=== PATIENT | male | born 1970 | race African-American/Black ===

== ENCOUNTER 2022-03-24 11:19 | Inpatient (IN) | payer MEDICARE ==
[2022-03-24] MEDS ORDERED: Iopamidol-370 76% 500 ML 1 ML ONE (11:36)
[2022-03-24] MEDS ORDERED: Aspirin 81 mg Enteric Coated Tablet ONE (11:46)
[2022-03-24] MEDS ORDERED: Aspirin Chewable 81 MG TAB ONE (11:46)
[2022-03-24] MEDS ORDERED: Nitroglycerin 2% Ointment 1 INCH/1 GM Packet ONE (11:46)
[2022-03-24 11:59] LABS: #Eosinphils 0.1 thou/uL (0.0-0.7); #Lymphocytes 1.1 thou/uL (1.20-3.40); #Monocytes 1.9 thou/uL (0.11-0.59); #Neutrophils 10.2 thou/uL (1.40-6.50); %Basophils 0.1 % (0.0-1.0); %Eosinophils 0.4 % (0.0-10.0); %Lymphocytes 8.2 % (21.0-51.0); %Monocytes 14.3 % (0.0-10.0); Hemoglobin 15.3 g/dL (14.0-18.0); Mean Corpuscular HGB CONC 33.4 g/dL (32.0-36.0); Mean Corpuscular Hemoglobin 35.2 pg (27.0-31.0); Mean Platelet Volume 8.9 fL (7.4-10.4); Platelet Count 248 thou/uL (130-400); RBC Distribution Width 15.1 % (11.5-14.5); Red Blood Cell (RBC) Count 4.34 mill/uL (4.70-6.10); White Blood Cell (WBC) Count 13.3 thou/uL (4.8-10.8)
[2022-03-24 12:13] LABS: ALT (SGPT) 51 U/L (8-55); AST (SGOT) 76 U/L (5-34); Albumin 2.8 g/dL (3.5-5.0); Alkaline Phosphatase 1269 U/L (40-110); Anion Gap 14 mmol/L (10-20); BUN (Urea Nitrogen) 59 mg/dL (8.4-25.7); Bilirubin, Total 3.5 mg/dL (0.2-1.2); CK (CPK) 401 U/L (30-200); Calc. Creatinine Clearance 0 mL/min (70-130); Calcium 8.5 mg/dL (7.8-10.44); Carbon Dioxide 24 mmol/L (22-29); Chloride 98 mmol/L (98-107); Estimated GFR 58; Globulin 5.2 g/dL (2.4-3.5); Glucose 93 mg/dL (70-105); Lipase 9 U/L (8-78); Potassium 3.5 mmol/L (3.5-5.1); Sodium 132 mmol/L (136-145)
[2022-03-24] MEDS ORDERED: Albuterol Sulfate 2.5 mg/0.5 ml Neb ONE (12:57)
[2022-03-24] MEDS ORDERED: Dexamethasone 10 MG/ML VIAL ONE (12:57)
[2022-03-24] MEDS ORDERED: Senokot S 8.6-50 MG TAB PO PRN (13:21)
[2022-03-24] MEDS ORDERED: Acetaminophen 325 MG TAB PO PRN (13:21)
[2022-03-24] MEDS ORDERED: Bisacodyl 5 MG TAB PO PRN (13:21)
[2022-03-24] MEDS ORDERED: Ondansetron PF 4 MG/2 ML Vial IVP PRN (13:21)
[2022-03-24] MEDS ORDERED: Ondansetron ODT 4 MG TAB PO PRN (13:21)
[2022-03-24] MEDS ORDERED: Azithromycin 500 MG VIAL ONE (13:25)
[2022-03-24] MEDS ORDERED: CEFAZOLIN 2 GM VIAL ONE (13:26)
[2022-03-24 15:15] LABS: Bilirubin 1+ (Negative); Blood, Urine Negative (Negative); Clarity Clear (Clear); Glucose, Urine (Dipstick) Normal (Negative); Ketone, Urine Negative (Negative); Leukocyte 250 Leu/uL (Negative); Nitrite Negative (Negative); Protein, Urine (Dipstick) 30 mg/dL (Neg-Trace); RBC/HPF 0-3 HPF (0-3); Specific Gravity, Urine 1.023 (1.002-1.036); Urobilinogen 6 mg/dL (Less than 2); WBC/HPF Greater than 50 HPF (0-3)
[2022-03-24 15:18] LABS: Bacteria/HPF 1+ HPF (None Seen)
[2022-03-24] MEDS ORDERED: Piperacillin/Tazobactam 3.375 GM in Sodium Chloride 0.9% 100 ML IVPB SCH (15:45)
[2022-03-24] MEDS ORDERED: Loperamide HCl 2 MG CAP PO PRN (15:49)
[2022-03-24] MEDS: Heparin 5,000 UNITS/ML VIAL SC SCH ×2 (16:21→20:50)
[2022-03-24] MEDS: Sodium Chloride 0.9% 1,000 ML IV SCH ×3 (16:22→23:55)
[2022-03-24] MEDS: Piperacillin/Tazobactam 3.375 GM in Sodium Chloride 0.9% 100 ML IVPB SCH ×2 (20:40→20:50)
[2022-03-25] MEDS ORDERED: Dextrose 5% in Water 1,000 ML IV PRN (00:06)
[2022-03-25] MEDS ORDERED: Dextrose 50% Abboject 50 ML SYRINGE SLOW IVP PRN (00:06)
[2022-03-25] MEDS: Piperacillin/Tazobactam 3.375 GM in Sodium Chloride 0.9% 100 ML IVPB SCH ×3 (00:29→16:54)
[2022-03-25] MEDS: HumaLOG 300 UNITS/3 ML VIAL SC PRN ×3 (00:29→21:36)
[2022-03-25 07:47] LABS: #Lymphocytes 0.7 thou/uL (1.20-3.40); #Monocytes 1.1 thou/uL (0.11-0.59); #Neutrophils 7.9 thou/uL (1.40-6.50); %Basophils 0.1 % (0.0-1.0); %Eosinophils 0.2 % (0.0-10.0); %Lymphocytes 6.8 % (21.0-51.0); %Monocytes 11.1 % (0.0-10.0); %Neutrophils 81.9 % (42.0-75.0); Hemoglobin 12.8 g/dL (14.0-18.0); Mean Corpuscular Hemoglobin 34.8 pg (27.0-31.0); Mean Platelet Volume 9.3 fL (7.4-10.4); Platelet Count 226 thou/uL (130-400); RBC Distribution Width 15.1 % (11.5-14.5); Red Blood Cell (RBC) Count 3.69 mill/uL (4.70-6.10); White Blood Cell (WBC) Count 9.6 thou/uL (4.8-10.8)
[2022-03-25 08:06] LABS: ALT (SGPT) 53 U/L (8-55); AST (SGOT) 64 U/L (5-34); Albumin 2.3 g/dL (3.5-5.0); Alkaline Phosphatase 1103 U/L (40-110); Anion Gap 13 mmol/L (10-20); BUN (Urea Nitrogen) 47 mg/dL (8.4-25.7); Bilirubin, Total 4.2 mg/dL (0.2-1.2); Calc. Creatinine Clearance 0 mL/min (70-130); Calcium 8.3 mg/dL (7.8-10.44); Carbon Dioxide 21 mmol/L (22-29); Chloride 105 mmol/L (98-107); Estimated GFR 68; Globulin 4.7 g/dL (2.4-3.5); Glucose 414 mg/dL (70-105); Potassium 4.2 mmol/L (3.5-5.1); Sodium 135 mmol/L (136-145)
[2022-03-25] MEDS: Heparin 5,000 UNITS/ML VIAL SC SCH ×3 (08:12→21:39)
[2022-03-25] MEDS: Azithromycin 500 MG in Sodium Chloride 0.9% 250 ML 250 ML IVPB SCH (08:12)
[2022-03-25] MEDS: Insulin Glargine 30 UNITS/0.3 ML VIAL SC SCH ×2 (08:13→21:36)
[2022-03-25 08:26] LABS: HBCM Index 0.13 S/CO (0-0.79); HBSAg Index 0.25 S/CO (0-0.99); Hep A IgM AB Non-Reactive (NonReactive); Hep A IgM S/CO 0.14 S/CO (0-0.79); Hep B Surf Ag Non-Reactive S/CO (NonReactive); Hep C IgG Ab Non-Reactive (NonReactive); Hepatitis B Core IgM Abs Non-Reactive (NonReactive)
[2022-03-25] MEDS ORDERED: FLU VACC QS2022-23(6MOS UP)/PF 60 MCG/0.5 ML SYRINGE IM ONE (09:00)
[2022-03-25] MEDS: Sodium Chloride 0.9% 1,000 ML IV SCH (09:51)
[2022-03-26] MEDS: Piperacillin/Tazobactam 3.375 GM in Sodium Chloride 0.9% 100 ML IVPB SCH ×3 (00:04→21:27)
[2022-03-26] MEDS: Insulin Glargine 30 UNITS/0.3 ML VIAL SC SCH ×2 (09:01→21:29)
[2022-03-26] MEDS: Heparin 5,000 UNITS/ML VIAL SC SCH ×3 (09:01→21:28)
[2022-03-26] MEDS: Azithromycin 500 MG in Sodium Chloride 0.9% 250 ML 250 ML IVPB SCH (09:02)
[2022-03-26 10:11] LABS: Albumin 2.3 g/dL (3.5-5.0)
[2022-03-26 10:12] LABS: Chloride 108 mmol/L (98-107); Potassium 3.8 mmol/L (3.5-5.1); Sodium 138 mmol/L (136-145)
[2022-03-26 10:13] LABS: Calcium 8.5 mg/dL (7.8-10.44)
[2022-03-26 10:14] LABS: Globulin 4.8 g/dL (2.4-3.5); Glucose 153 mg/dL (70-105); Protein, Total 7.1 g/dL (6.0-8.3)
[2022-03-26 10:15] LABS: Anion Gap 11 mmol/L (10-20); Bilirubin, Total 3.5 mg/dL (0.2-1.2); Carbon Dioxide 23 mmol/L (22-29)
[2022-03-26 10:16] LABS: Alkaline Phosphatase 1136 U/L (40-110)
[2022-03-26 10:17] LABS: Calc. Creatinine Clearance 0 mL/min (70-130); Estimated GFR 97
[2022-03-26 10:18] LABS: BUN (Urea Nitrogen) 21 mg/dL (8.4-25.7)
[2022-03-26 10:19] LABS: AST (SGOT) 117 U/L (5-34)
[2022-03-26 10:20] LABS: ALT (SGPT) 83 U/L (8-55)
[2022-03-26] MEDS: HumaLOG 300 UNITS/3 ML VIAL SC PRN ×2 (13:10→21:28)
[2022-03-26] MEDS: guaiFENesin ER 600 MG TAB PO SCH (21:27)
[2022-03-27] MEDS: Piperacillin/Tazobactam 3.375 GM in Sodium Chloride 0.9% 100 ML IVPB SCH ×2 (03:36→13:30)
[2022-03-27 08:45] LABS: Albumin 2.5 g/dL (3.5-5.0)
[2022-03-27 08:46] LABS: Chloride 108 mmol/L (98-107); Potassium 3.7 mmol/L (3.5-5.1); Sodium 140 mmol/L (136-145)
[2022-03-27 08:47] LABS: Calcium 8.8 mg/dL (7.8-10.44)
[2022-03-27 08:48] LABS: Glucose 70 mg/dL (70-105); Protein, Total 7.5 g/dL (6.0-8.3)
[2022-03-27 08:49] LABS: Anion Gap 11 mmol/L (10-20); Carbon Dioxide 25 mmol/L (22-29)
[2022-03-27 08:50] LABS: Alkaline Phosphatase 1349 U/L (40-110); Bilirubin, Total 4.3 mg/dL (0.2-1.2)
[2022-03-27 08:51] LABS: Calc. Creatinine Clearance 0 mL/min (70-130); Estimated GFR 106
[2022-03-27 08:52] LABS: BUN (Urea Nitrogen) 10 mg/dL (8.4-25.7)
[2022-03-27 08:53] LABS: AST (SGOT) 144 U/L (5-34)
[2022-03-27 08:54] LABS: ALT (SGPT) 119 U/L (8-55)
[2022-03-27] MEDS: Insulin Glargine 30 UNITS/0.3 ML VIAL SC SCH ×2 (09:10→21:41)
[2022-03-27] MEDS: guaiFENesin ER 600 MG TAB PO SCH ×2 (09:10→21:23)
[2022-03-27] MEDS: Azithromycin 500 MG in Sodium Chloride 0.9% 250 ML 250 ML IVPB SCH ×2 (09:10→13:29)
[2022-03-27] MEDS: Heparin 5,000 UNITS/ML VIAL SC SCH ×3 (09:10→21:23)
[2022-03-27 11:27] VITALS: BMI 20.2
[2022-03-28] MEDS: Levothyroxine Sodium 50 MCG TAB PO SCH (05:28)
[2022-03-28 07:00] LABS: ALT (SGPT) 106 U/L (8-55); AST (SGOT) 107 U/L (5-34); Albumin 2.3 g/dL (3.5-5.0); Alkaline Phosphatase 1258 U/L (40-110); Anion Gap 12 mmol/L (10-20); BUN (Urea Nitrogen) 7 mg/dL (8.4-25.7); Bilirubin, Total 4.2 mg/dL (0.2-1.2); Calc. Creatinine Clearance 110 mL/min (70-130); Calcium 8.6 mg/dL (7.8-10.44); Carbon Dioxide 22 mmol/L (22-29); Chloride 107 mmol/L (98-107); Estimated GFR 110; Globulin 5.3 g/dL (2.4-3.5); Glucose 51 mg/dL (70-105); Potassium 4.1 mmol/L (3.5-5.1); Protein, Total 7.6 g/dL (6.0-8.3); Sodium 137 mmol/L (136-145)
[2022-03-28] MEDS: Tamsulosin HCl 0.4 MG CAP PO SCH (08:53)
[2022-03-28] MEDS: Insulin Glargine 30 UNITS/0.3 ML VIAL SC SCH ×2 (08:53→20:20)
[2022-03-28] MEDS: Heparin 5,000 UNITS/ML VIAL SC SCH ×3 (08:53→20:20)
[2022-03-28] MEDS: guaiFENesin ER 600 MG TAB PO SCH ×2 (08:54→20:19)
[2022-03-28] MEDS ORDERED: Acetylcysteine 20% 200 MG/ML 30 ML VIAL INH SCH (10:00)
[2022-03-28] MEDS: HumaLOG 300 UNITS/3 ML VIAL SC PRN (17:00)
[2022-03-29] MEDS: Levothyroxine Sodium 50 MCG TAB PO SCH (05:04)
[2022-03-29 07:24] LABS: ALT (SGPT) 72 U/L (8-55); AST (SGOT) 42 U/L (5-34); Albumin 2.3 g/dL (3.5-5.0); Alkaline Phosphatase 1067 U/L (40-110); Anion Gap 10 mmol/L (10-20); BUN (Urea Nitrogen) 7 mg/dL (8.4-25.7); Bilirubin, Total 2.7 mg/dL (0.2-1.2); Calc. Creatinine Clearance 116 mL/min (70-130); Calcium 8.4 mg/dL (7.8-10.44); Carbon Dioxide 22 mmol/L (22-29); Chloride 106 mmol/L (98-107); Estimated GFR 112; Globulin 4.4 g/dL (2.4-3.5); Glucose 109 mg/dL (70-105); Potassium 3.8 mmol/L (3.5-5.1); Protein, Total 6.7 g/dL (6.0-8.3); Sodium 134 mmol/L (136-145)
[2022-03-29] MEDS: Heparin 5,000 UNITS/ML VIAL SC SCH (08:39)
[2022-03-29] MEDS: Tamsulosin HCl 0.4 MG CAP PO SCH (08:39)
[2022-03-29] MEDS: guaiFENesin ER 600 MG TAB PO SCH (08:39)
[2022-03-29] MEDS: Insulin Glargine 30 UNITS/0.3 ML VIAL SC SCH (08:40)
[2022-03-29 12:39] VITALS: BP 131/89; TEMP 98.7
== END 2022-03-29 13:18 | disposition home or self-care (01) | DRG 871 ==
LOC: SUATTDRO 11:19 → ERS 11:19 → T4-B 13:24
PROVIDERS: ADMIT Internal Medicine; ATTEND Family Medicine
DX: A41.9 Sepsis, unspecified organism (principal); J18.0 Bronchopneumonia, unspecified organism; J96.01 Acute respiratory failure with hypoxia; N17.9 Acute kidney failure, unspecified; K86.3 Pseudocyst of pancreas; J44.0 Chronic obstructive pulmonary disease with (acute) lower respiratory infection; R65.20 Severe sepsis without septic shock; Z20.822 Contact with and (suspected) exposure to COVID-19; F17.210 Nicotine dependence, cigarettes, uncomplicated; F10.10 Alcohol abuse, uncomplicated; K83.8 Other specified diseases of biliary tract; E11.649 Type 2 diabetes mellitus with hypoglycemia without coma; Z79.899 Other long term (current) drug therapy; Z79.890 Hormone replacement therapy; Z79.4 Long term (current) use of insulin
CPT/HCPCS: 36415; 36416; 71045; 71275; 74177; 76705; 80053; 80074; 81003; 81015; 82550; 83605; 83690; 83880; 84484; 85025; 85379; 86301; 87040; 90471; 90686; 93005; 93306; 94640; 96361; 96374; 96375; G0008; J0132; J0456; J0690; J1100; J1644; J1815; J2543; J3490; J7050; J7611; J7620; Q9967; U0003; U0005

== ENCOUNTER 2022-04-28 01:30 | Inpatient (IN) | payer MEDICARE ==
[2022-04-28 03:47] VITALS: BMI 22.5
[2022-04-28] MEDS ORDERED: Bisacodyl 10 MG SUPP PR PRN (03:52)
[2022-04-28] MEDS ORDERED: Bisacodyl 5 MG TAB PO PRN (03:52)
[2022-04-28] MEDS ORDERED: Acetaminophen 650 MG Suppository PR PRN (03:52)
[2022-04-28] MEDS ORDERED: Senokot S 8.6-50 MG TAB PO PRN (03:52)
[2022-04-28] MEDS ORDERED: Ondansetron ODT 4 MG TAB PO PRN (03:52)
[2022-04-28] MEDS ORDERED: Guaifenesin DM 100-10/5 ML UDCUP PO PRN (03:52)
[2022-04-28] MEDS ORDERED: Ondansetron PF 4 MG/2 ML Vial IVP PRN (03:52)
[2022-04-28] MEDS ORDERED: Dextrose 50% Abboject 50 ML SYRINGE SLOW IVP PRN (04:00)
[2022-04-28] MEDS ORDERED: Dextrose 5% in Water 1,000 ML IV PRN (04:00)
[2022-04-28] MEDS ORDERED: Albuterol Sulfate 2.5 mg/3 ml Neb NEB PRN (04:30)
[2022-04-28 05:47] LABS: Lactic Acid 1.4 mmol/L (0.5-2.2)
[2022-04-28 05:51] LABS: ALT (SGPT) 80 U/L (8-55); AST (SGOT) 150 U/L (5-34); Albumin 2.6 g/dL (3.5-5.0); Alkaline Phosphatase 1582 U/L (40-110); Anion Gap 12 mmol/L (10-20); BUN (Urea Nitrogen) 11 mg/dL (8.4-25.7); Bilirubin, Total 1.3 mg/dL (0.2-1.2); CK (CPK) 280 U/L (30-200); Calc. Creatinine Clearance 131 mL/min (70-130); Calcium 8.2 mg/dL (7.8-10.44); Carbon Dioxide 27 mmol/L (22-29); Chloride 103 mmol/L (98-107); Estimated GFR 113; Globulin 3.2 g/dL (2.4-3.5); Glucose 84 mg/dL (70-105); Magnesium 1.4 mg/dL (1.6-2.6); Potassium 3.6 mmol/L (3.5-5.1); Protein, Total 5.8 g/dL (6.0-8.3); Sodium 138 mmol/L (136-145)
[2022-04-28] MEDS: Levothyroxine Sodium 50 MCG TAB PO SCH (05:52)
[2022-04-28] MEDS: Lactated Ringer's 1,000 ML IV SCH ×2 (05:52→21:34)
[2022-04-28 05:53] LABS: Amphetamine Not Detected (NotDetected); Barbiturates Screen Not Detected (NotDetected); Benzodiazepine Screen Not Detected (NotDetected); Cocaine Metabolite Screen Not Detected (NotDetected); Methadone Not Detected (NotDetected); Methamphetamine Not Detected (NotDetected); Opiate Screen Not Detected (NotDetected); Oxycodone Screen Not Detected (NotDetected); Phencyclidine (PCP) Not Detected (NotDetected); THC/Cannabinoid Screen Not Detected (NotDetected); Tricyclic Screen Not Detected (NotDetected)
[2022-04-28 05:58] LABS: Bilirubin Negative (Negative); Blood, Urine Negative (Negative); Clarity Clear (Clear); Glucose, Urine (Dipstick) Normal (Negative); Ketone, Urine Negative (Negative); Leukocyte 250 Leu/uL (Negative); Nitrite Negative (Negative); Protein, Urine (Dipstick) Negative (Neg-Trace); Specific Gravity, Urine 1.008 (1.002-1.036); Urobilinogen Normal mg/dL (Less than 2)
[2022-04-28 06:17] LABS: Bacteria/HPF Rare-Few HPF (None Seen); RBC/HPF 0-3 HPF (0-3)
[2022-04-28 06:18] LABS: Squamous Epithelial 0-3 HPF (0-3)
[2022-04-28 06:20] LABS: #Lymphocytes 1.1 thou/uL (1.20-3.40); #Monocytes 0.4 thou/uL (0.11-0.59); #Neutrophils 2.2 thou/uL (1.40-6.50); %Eosinophils 1.2 % (0.0-10.0); %Lymphocytes 29.1 % (21.0-51.0); %Monocytes 11.4 % (0.0-10.0); %Neutrophils 58.3 % (42.0-75.0)
[2022-04-28 06:21] LABS: Hemoglobin 13.1 g/dL (14.0-18.0); Mean Corpuscular HGB CONC 33.6 g/dL (32.0-36.0); Mean Corpuscular Hemoglobin 38.2 pg (27.0-31.0); Mean Platelet Volume 9.3 fL (7.4-10.4); Platelet Count 119 10x3/uL (130-400); RBC Distribution Width 16.9 % (11.5-14.5); Red Blood Cell (RBC) Count 3.42 mill/uL (4.70-6.10); White Blood Cell (WBC) Count 3.7 10x3/uL (4.8-10.8)
[2022-04-28] MEDS: Amlodipine 10 MG TAB PO SCH (08:01)
[2022-04-28] MEDS: Enoxaparin Sodium 40 MG/0.4 ML SYRINGE SC SCH (08:01)
[2022-04-28] MEDS: guaiFENesin ER 600 MG TAB PO SCH ×2 (08:02→21:32)
[2022-04-28] MEDS: Furosemide 20 MG TAB PO SCH ×2 (08:02→21:32)
[2022-04-28] MEDS: Folic Acid 1 MG TAB PO SCH (08:02)
[2022-04-28] MEDS: Thiamine 100 MG TAB PO SCH (08:03)
[2022-04-28] MEDS: Tamsulosin HCl 0.4 MG CAP PO SCH (08:03)
[2022-04-28] MEDS: Nicotine 21 MG PATCH TD SCH (08:03)
[2022-04-28] MEDS: metroNIDAZOLE 500 MG TAB PO SCH ×2 (08:17→21:32)
[2022-04-28] MEDS ORDERED: Magnesium Sulfate In Water 4 GM in Premix Bag 1 BAG IVPB SCH (08:30)
[2022-04-28] MEDS ORDERED: Famotidine/PF 20 mg/2ml Vial SLOW IVP SCH (09:00)
[2022-04-28] MEDS ORDERED: Famotidine 20 MG TAB PO SCH (09:00)
[2022-04-28] MEDS: cefTRIAXone\\ROCEPHIN 1 GM in Sodium Chloride 0.9% 100 ML IVPB SCH (18:04)
[2022-04-28] MEDS: Pancrelipase DR 12,000 1 CAP PO SCH (18:04)
[2022-04-28 18:54] LABS: HIV (1/2) Antibody/Antigen Non-Reactive (NonReactive); HIV 1/2 INDEX 0.14 S/CO (<1.00)
[2022-04-28 19:07] LABS: Chlam.trachomatis by PCR,Urine Not Detected (NotDetected)
[2022-04-28] MEDS: HumaLOG 300 UNITS/3 ML VIAL SC PRN (21:37)
[2022-04-29 05:12] LABS: Hemoglobin A1c 5.8 % (4.0-6.0)
[2022-04-29 05:27] LABS: Anion Gap 8 mmol/L (10-20); BUN (Urea Nitrogen) 8 mg/dL (8.4-25.7); Calc. Creatinine Clearance 122 mL/min (70-130); Carbon Dioxide 26 mmol/L (22-29); Chloride 106 mmol/L (98-107); Estimated GFR 110; Glucose 117 mg/dL (70-105); Potassium 3.3 mmol/L (3.5-5.1); Sodium 137 mmol/L (136-145)
[2022-04-29 05:33] LABS: #Basophils 0.1 thou/uL (0.0-0.2); #Eosinphils 0.1 thou/uL (0.0-0.7); #Lymphocytes 0.7 thou/uL (1.20-3.40); #Monocytes 0.5 thou/uL (0.11-0.59); #Neutrophils 2.4 thou/uL (1.40-6.50); %Basophils 1.7 % (0.0-1.0); %Eosinophils 3.1 % (0.0-10.0); %Monocytes 13.5 % (0.0-10.0); %Neutrophils 62.7 % (42.0-75.0); Mean Corpuscular HGB CONC 34.3 g/dL (32.0-36.0); Mean Corpuscular Hemoglobin 39.1 pg (27.0-31.0); Mean Platelet Volume 9.5 fL (7.4-10.4); Platelet Count 109 10x3/uL (130-400); RBC Distribution Width 16.4 % (11.5-14.5); Red Blood Cell (RBC) Count 3.59 mill/uL (4.70-6.10); White Blood Cell (WBC) Count 3.8 10x3/uL (4.8-10.8)
[2022-04-29] MEDS: Acetaminophen 325 MG TAB PO PRN ×2 (05:40→19:46)
[2022-04-29] MEDS: Levothyroxine Sodium 50 MCG TAB PO SCH (05:40)
[2022-04-29] MEDS: Pancrelipase DR 12,000 1 CAP PO SCH ×3 (08:46→17:01)
[2022-04-29] MEDS: Amlodipine 10 MG TAB PO SCH (08:47)
[2022-04-29] MEDS: Furosemide 20 MG TAB PO SCH ×2 (08:48→19:46)
[2022-04-29] MEDS: Tamsulosin HCl 0.4 MG CAP PO SCH (08:48)
[2022-04-29] MEDS: Thiamine 100 MG TAB PO SCH (08:48)
[2022-04-29] MEDS: Enoxaparin Sodium 40 MG/0.4 ML SYRINGE SC SCH (08:48)
[2022-04-29] MEDS: guaiFENesin ER 600 MG TAB PO SCH ×2 (08:48→19:46)
[2022-04-29] MEDS: Folic Acid 1 MG TAB PO SCH (08:48)
[2022-04-29] MEDS: metroNIDAZOLE 500 MG TAB PO SCH ×2 (08:48→19:46)
[2022-04-29] MEDS: Nicotine 21 MG PATCH TD SCH (08:49)
[2022-04-29] MEDS: Lactated Ringer's 1,000 ML IV SCH ×2 (11:12→22:43)
[2022-04-29] MEDS ORDERED: Potassium Chloride 20 MEQ TAB PO SCH (13:00)
[2022-04-29] MEDS: Potassium Chloride 20 MEQ TAB PO SCH (17:01)
[2022-04-29] MEDS: cefTRIAXone\\ROCEPHIN 1 GM in Sodium Chloride 0.9% 100 ML IVPB SCH (17:01)
[2022-04-29] MEDS: HumaLOG 300 UNITS/3 ML VIAL SC PRN ×2 (17:02→21:02)
[2022-04-30] MEDS: Levothyroxine Sodium 50 MCG TAB PO SCH (05:25)
[2022-04-30 05:57] LABS: ALT (SGPT) 92 U/L (8-55); AST (SGOT) 142 U/L (5-34); Albumin 2.2 g/dL (3.5-5.0); Alkaline Phosphatase 1493 U/L (40-110); Anion Gap 11 mmol/L (10-20); BUN (Urea Nitrogen) 6 mg/dL (8.4-25.7); Bilirubin, Total 4.9 mg/dL (0.2-1.2); Calc. Creatinine Clearance 113 mL/min (70-130); Calcium 8.2 mg/dL (7.8-10.44); Carbon Dioxide 24 mmol/L (22-29); Chloride 103 mmol/L (98-107); Estimated GFR 108; Globulin 3.2 g/dL (2.4-3.5); Glucose 286 mg/dL (70-105); Potassium 4.1 mmol/L (3.5-5.1); Protein, Total 5.4 g/dL (6.0-8.3); Sodium 134 mmol/L (136-145)
[2022-04-30 06:05] LABS: Anisocytosis SLIGHT = 6-15 cells (100X) (0-5/hpf); Hemoglobin 12.9 g/dL (14.0-18.0); Large Platelets SLIGHT; Lymphocytes 7 % (21-51); MDiff Complete? YES; Macrocytosis MODERATE=16-30 cells (100X) (0-5/hpf); Mean Corpuscular HGB CONC 32.4 g/dL (32.0-36.0); Mean Corpuscular Hemoglobin 36.8 pg (27.0-31.0); Mean Platelet Volume 9.9 fL (7.4-10.4); Monocytes 16 % (0-10); Neutrophil 75 % (42-75); Ovalocytes SLIGHT = 2-5 cells (100X) (0-1/hpf); Platelet Count 100 10x3/uL (130-400); Platelet Morphology Comment Appears Decreased; RBC Distribution Width 16.2 % (11.5-14.5); Reactive Lymphocytes 2 % (0-10); Red Blood Cell (RBC) Count 3.51 mill/uL (4.70-6.10); Target Cells MODERATE= 6-15 cells (100X) (0-1/hpf); White Blood Cell (WBC) Count 7.7 10x3/uL (4.8-10.8)
[2022-04-30] MEDS: HumaLOG 300 UNITS/3 ML VIAL SC PRN (06:09)
[2022-04-30] MEDS: Enoxaparin Sodium 40 MG/0.4 ML SYRINGE SC SCH (08:58)
[2022-04-30] MEDS: Nicotine 21 MG PATCH TD SCH (08:58)
[2022-04-30] MEDS: Pancrelipase DR 12,000 1 CAP PO SCH ×2 (08:59→12:16)
[2022-04-30] MEDS: Thiamine 100 MG TAB PO SCH (08:59)
[2022-04-30] MEDS: Potassium Chloride 20 MEQ TAB PO SCH (08:59)
[2022-04-30] MEDS: guaiFENesin ER 600 MG TAB PO SCH (08:59)
[2022-04-30] MEDS: Amlodipine 10 MG TAB PO SCH (08:59)
[2022-04-30] MEDS: Furosemide 20 MG TAB PO SCH (08:59)
[2022-04-30] MEDS: Folic Acid 1 MG TAB PO SCH (09:00)
[2022-04-30] MEDS: metroNIDAZOLE 500 MG TAB PO SCH (09:00)
[2022-04-30] MEDS: Tamsulosin HCl 0.4 MG CAP PO SCH (09:00)
[2022-04-30] MEDS: Lactated Ringer's 1,000 ML IV SCH (09:07)
[2022-04-30] MEDS: Acetaminophen 325 MG TAB PO PRN (09:11)
[2022-04-30 12:22] VITALS: BP 108/67; TEMP 97.7
== END 2022-04-30 13:07 | disposition home or self-care (01) | DRG 896 ==
LOC: 2SW 03:26 → OBSVTOIN 03:52
PROVIDERS: ADMIT Family Medicine; ATTEND Family Medicine
PROC: HZ2ZZZZ Detoxification Services for Substance Abuse Treatment (ICD-10-PCS; principal; 2022-04-28)
DX: F10.129 Alcohol abuse with intoxication, unspecified (principal); G92.8 Other toxic encephalopathy; K86.3 Pseudocyst of pancreas; K86.1 Other chronic pancreatitis; E11.649 Type 2 diabetes mellitus with hypoglycemia without coma; E87.6 Hypokalemia; Z20.822 Contact with and (suspected) exposure to COVID-19; R68.0 Hypothermia, not associated with low environmental temperature; F17.210 Nicotine dependence, cigarettes, uncomplicated; R74.01 Elevation of levels of liver transaminase levels; I10 Essential (primary) hypertension; Y90.5 Blood alcohol level of 100-119 mg/100 ml; Z79.899 Other long term (current) drug therapy; Z79.4 Long term (current) use of insulin; Z79.890 Hormone replacement therapy; Z98.890 Other specified postprocedural states; Z83.3 Family history of diabetes mellitus; Z82.49 Family history of ischemic heart disease and other diseases of the circulatory system; Z71.6 Tobacco abuse counseling
CPT/HCPCS: 36415; 36416; 80048; 80053; 80306; 81001; 82550; 83036; 83605; 83735; 85025; 87086; 87389; 87491; 87591; J0696; J1650; J1815; J2405; J3475; J3490; J7120; Q0162; U0003; U0005